=== PATIENT | male | born 1960 | race Caucasian/White ===

== ENCOUNTER 2022-01-19 01:17 | Emergency (ER) | payer MEDICARE, MEDICAID ==
[2022-01-19] MEDS ORDERED: Sodium Chloride 0.9% 10 ML Syringe FLUSH PRN (01:18)
[2022-01-19 01:55] LABS: CHLORIDE,CL 97 mEq/L (98-106); SODIUM,NA 137 mEq/L (136-145)
[2022-01-19 02:02] LABS: PTT,PARTIAL THROMBOPLSTIN TIME 21.2 SEC (23.2-32.3)
[2022-01-19] MEDS ORDERED: Sodium Chloride 0.9% 1,000 ML IV SCH ×2 (02:15→05:45)
[2022-01-19] MEDS ORDERED: HYDROmorphone 1 MG/ML Syringe IVPUSH ONE (02:44)
[2022-01-19] MEDS ORDERED: Ondansetron 4 MG/2 ML SDV IVPUSH STA ×2 (02:45→03:50)
[2022-01-19] MEDS ORDERED: Iopamidol 755 Mg/ML 100 ML Bottle IVPUSH ONE (03:19)
[2022-01-19] MEDS ORDERED: cefTRIAXone 2 GM Vial IVPUSH ONE (05:32)
[2022-01-19] MEDS ORDERED: VANCOmycin 1 GM/200 ML 1 GM in Premix Bag 1 BAG IV STA (05:33)
[2022-01-19] MEDS ORDERED: Sodium Chloride 0.9% 1,000 ML IV ONE (05:34)
[2022-01-19] MEDS ORDERED: HYDROmorphone 1 MG/ML Syringe ONE (12:46)
[2022-01-19] MEDS ORDERED: Ondansetron 4 MG/2 ML SDV ONE (12:48)
== END 2022-01-19 06:31 ==
LOC: CC.ED 01:17
DX: A41.9 Sepsis, unspecified organism (principal); R51.9 Headache, unspecified; M54.2 Cervicalgia; R06.02 Shortness of breath; R10.32 Left lower quadrant pain; Z79.02 Long term (current) use of antithrombotics/antiplatelets; Z79.899 Other long term (current) drug therapy; Z95.1 Presence of aortocoronary bypass graft; Z20.822 Contact with and (suspected) exposure to COVID-19
CPT/HCPCS: 36415; 70450; 71275; 75635; 80053; 81001; 82550; 83605; 83880; 84484; 85025; 85379; 85610; 85730; 86140; 87804; 93005; 96365; 96375; 96376; 99285; J0696; J1170; J2405; J3370; J7030; Q9967; U0002; 99284